=== PATIENT | female | born 1990 | race Caucasian/White ===

== ENCOUNTER 2021-04-25 10:13 | Emergency (ER) | payer OTHER ==
[2021-04-25 11:49] LABS: BASOPHIL 0.8 % (0-2); EOSINOPHIL 0.5 % (0-5); HGB 13.9 g/dl (12.5-16.0); LYMPHOCYTE 12.6 % (15-48); MCH 29.3 pg (25.0-31.0); MCHC 32.3 g/dL (32.0-36.0); MCV 90.7 fL (78.0-100.0); MONOCYTE 7.3 % (0-12); MPV 10.2 fL (6.0-9.5); NEUTROPHIL 78.4 % (41-80); NRBC 0; PLT 267 K/uL (150-400); RBC 4.74 M/uL (4.20-5.40); RDW 12.3 % (11.5-14.0); WBC 9.2 K/uL (4.0-10.5)
[2021-04-25 12:30] LABS: ALBUMIN 3.7 g/dL (3.4-5.0); BILIRUBIN - TOTAL 0.5 mg/dL (0.2-1.0); BUN/CREAT RATIO (CALC) 21.2 RATIO; CREATININE 0.8 mg/dL (0.51-0.95); GLOBULIN (CALCULATION) 4.3 g/dL; POTASSIUM 4.3 mmol/L (3.5-5.1)
[2021-04-25 14:06] LABS: ALBUMIN 3.8 g/dL (3.4-5.0); BILIRUBIN - TOTAL 0.5 mg/dL (0.2-1.0); BUN/CREAT RATIO (CALC) 23.1 RATIO; CREATININE 0.78 mg/dL (0.51-0.95); POTASSIUM 4.2 mmol/L (3.5-5.1); TOTAL PROTEIN 7.8 g/dL (6.4-8.2)
[2021-04-25 14:07] LABS: BILIRUBIN NEGATIVE (NEGATIVE); BLOOD 3+ Ery/uL (NEGATIVE); CLARITY CLOUDY (CLEAR); COLOR YELLOW (YELLOW); GLUCOSE (U) NORMAL (NORMAL); LEUKOCYTES NEGATIVE Leu/uL (NEGATIVE); NITRITE NEGATIVE (NEGATIVE); PROTEIN 1+ mg/dL (NEGATIVE); SPECIFIC GRAVITY >=1.030 (1.001-1.030)
[2021-04-25 14:53] LABS: AMORPHOUS URATES CRYSTALS LARGE; BACTERIA TRACE; SQUAMOUS EPITHELIAL CELLS RARE; URINARY WBC RARE
[2021-04-25 15:05] LABS: STARCH GRANULES PRESENT
== END 2021-04-25 16:48 | disposition home or self-care (01) ==
LOC: FER 10:13
PROVIDERS: Internal Medicine; Nurse Practitioner Family
DX: R10.84 Generalized abdominal pain (principal); R31.9 Hematuria, unspecified; R11.0 Nausea; N20.0 Calculus of kidney; Z98.890 Other specified postprocedural states; Z88.1 Allergy status to other antibiotic agents
CPT/HCPCS: 36415; 80053; 81001; 82150; 83690; 85025; J2270; J2405; J7030